=== PATIENT | female | born 1990 | race African-American/Black ===

== ENCOUNTER 2022-08-19 11:05 | Emergency (ER) | payer OTHER, SELFPAY ==
--- OUTSIDE RECORDS SUMMARY | 2022-08-19 11:10 | XMS REPORT | Continuity of Care Document ---
:1990 Author Organization [facility] t Address [address] [place] [address] Care Team Providers Name Role Phone Bill Blackmon MD Primary Care Physician DIAMOND VELÁSQUEZ Attending Clinician Unavailable ARMAND VIDAL Attending Clinician Unavailable Cat Scott MA Attending Clinician Unavailable Aleyda Ellington MA Attending Clinician Unavailable Yamile Meade RN Attending Clinician Unavailable Diamond Velásquez MD Attending Clinician [phone] Yamile Lopez RN Attending Clinician Unavailable Armand Kendrick Attending Clinician Tarik Jaime MD Attending Clinician [facility] Attending Clinician Unavailable Félix Owen Attending Clinician [phone] FÉLIX VORA Attending Clinician Unavailable MAGDALENO MCDANIEL Attending Clinician Unavailable BHAVYA MATTSON Attending Clinician Unavailable Bill Blackmon MD Attending Clinician Reina Maciel MA Attending Clinician Unavailable KIESHA HUFF Attending Clinician Unavailable DIAMOND VELÁSQUEZ Admitting Clinician Unavailable Payers Payer Name Policy Type Policy Number Effective Date Expiration Date Parveen garland BCBS OS [id number] 2019 POS/PPO/EPO 00:00:00 [place] [id number] 2019 OUT OF STATE 00:00:00 [place] [id number] 2019 00:00:00 Problems Condition Condition Condition Status Onset Resolution Last Treating Co mments Source Name Details Category Date Date Treatment Clinician Date Morbid Morbid Disease [facility] GERD GERD Disease Active [facility] ([facility]astroeso (gastroeso 5-17 [facility] phageal phageal 00:00: Medical reflux reflux 00 Center disease) disease) Trichomona Trichomona Disease Active U nivers l l 2-03 ity of [place]ov[place] it[place] 00 Medical Branch LGSIL on LGSIL on Disease Active 2019-08 Overview: Un jose Pap smear Pap smear 2-15 Formattin i ty of of cervix of cervix 00:00: [place] of [place] 00 note Medical might be Branch different from the original. 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 Morbid Morbid Disease Active Univers obesity obesity 7-03 ity of 00:00: [place] 00 Medical Branch Allergies, Adverse Reactions, Alerts Allergy Allergy Status Severity Reaction(s) Onset Inactive Treating Comm ents Source Name Type Date Date Clinician Diphenhy Propensi Active Itching Metho di dramine ty to 3-11 st Hcl adverse 00:00: [facility] reaction 00 l s to drug DIPHENHY DRUG Active Swelling Univer s DRAMINE INGREDI 1-24 ity of HCL 00:00: [place] 00 Medical Branch Diphenhy Propensi Active Swelling Univ ers dramine ty to 1-24 ity of Hcl adverse 00:00: [place] reaction 00 Medical s Branch NO KNOWN Allergy Active [facility] Family History Family Member Diagnosis Comments Start Date Stop Date Source Natural father [facility] Social History Social Habit Start Date Stop Date Quantity Comments Source History SDOH [facility] Alcohol Frequency Medical [facility] History SDOH [facility] Alcohol Std Medical Cente r Drinks History SDOH [facility] Alcohol Binge Medical Lyn ter History SDOH [facility] Transport Non-Med Medical Center Exposure to 2022-06-25 2022-07-05 Not sure University SARS-CoV-2 00:00:00 06:24:00 [facility] (event) Branch Alcohol intake 2022-06-29 2022-06-29 [facility] alcohol Medical Center (finding) History SDOH 2021-12-28 2021-12-[address] [facility] Transport Med 00:00:00 00:00:[address] History SDOH 2021-12-28 2021-12-[address] [facility] Housing Unable to 00:00:00 00:00:00 Medical Center Pay History SDAK 2021-12-28 2021-12-[address] [facility] Housing Places 00:00:00 00:00:00 Medical Ce nter Lived History SDAK 2021-12-28 2021-12-[address] [facility] Housing Homeless 00:00:00 00:00:00 Medical Center Last Year History SDOH 2021-10-27 2021-10-[address] [facility] Alcohol Comment 00:00:00 00:00:00 Medical C enter Tobacco use and 2021-09-29 2021-09-[address] [facility] exposure 00:00:00 00:00:00 Medical Center Sex Assigned At [address] [facility] 00:00:00 00:00:00 Medical Center Smoking Status Start Date Stop Date Source Never smoker [facility] Center Medications Ordered Filled Start Stop Current Ordering Indication Dosage Frequency Signature Comments Components Source Medication Medication Date Date Medication? Clinician (SIG) Name Name esomeprazol 2021-08 Yes 20mg QD Take [address] (NexIUM) 1-16 by mouth [facility] 20 MG 10:55: daily. Medical capsule 22 Center esomeprazol No 20mg QD Take [address] (NexIUM) 5-18 05-18 by mouth Luke s 20 MG 14:22: 00:00 daily. Medical capsule 53 :00 Center pantoprazol 2022- No 40mg QD Take [address] [facility] 5-18 05-18 tablet (40 [facility] (Protonix) 00:00: 23:59 mg total) M edical 40 MG 00 :00 by mouth Center tablet daily. HYDROcodone 2021- No 10mL Take [address] -acetaminop 5-18 05-28 mLs by [facility] hen 00:00: 23:59 mouth Medical (LORTAB,HYC 00 :00 every 6 Cente r ET) 7.5-325 (six) mg/15 mL hours as Soln needed for solution up to 10 days. Max Daily Amount: 40 mLs ondansetron 2021- No 4mg Take [address] [facility] [address] (ZOFRAN-ODT 5-18 05-25 tablet (4 [facility] ) 4 MG 00:00: 23:59 mg total) Medic al disintegrat 00 :00 by mouth Cent er ing tablet every 8 (eight) hours as needed for Nausea for up to 7 days. GENVOYA Yes [id number] TAKE 1 Univ ers 150-150-200 4-28 TABLET BY ity of -10 mg per 00:00: MOUTH [place] tablet 00 EVERY DAY Medical Branch GENVOYA Yes [id number] TAKE 1 Univ ers 150-150-200 4-28 TABLET BY ity of -10 mg per 00:00: MOUTH [place] tablet 00 EVERY DAY Medical Branch GENVOYA Yes [id number] TAKE 1 Univ ers 150-150-200 4-28 TABLET BY ity of -10 mg per 00:00: MOUTH [place] tablet 00 EVERY DAY Medical Branch GENVOYA 2021-0 Yes [id number] TAKE 1 Univ ers 150-150-200 4-28 TABLET BY ity of -10 mg per 00:00: MOUTH [place] tablet 00 EVERY DAY Medical Branch GENVOYA 2021-0 Yes [id number] TAKE 1 Univ ers 150-150-200 4-28 TABLET BY ity of -10 mg per 00:00: MOUTH [place] tablet 00 EVERY DAY Medical Branch GENVOYA 2021-0 Yes [id number] TAKE 1 Univ ers 150-150-200 4-28 TABLET BY ity of -10 mg per 00:00: MOUTH [place] tablet 00 EVERY DAY Medical Branch GENVOYA 0 Yes [id number] TAKE 1 Univ ers 150-150-200 4-28 TABLET BY ity of -10 mg per 00:00: MOUTH [place] tablet 00 EVERY DAY Medical Branch GENVOYA 0 Yes [id number] TAKE 1 Univ ers 150-150-200 4-28 TABLET BY ity of -10 mg per 00:00: MOUTH [place] tablet 00 EVERY DAY Medical Branch GENVOYA 0 Yes [id number] TAKE 1 Univ ers 150-150-200 4-28 TABLET BY ity of -10 mg per 00:00: MOUTH [place] tablet 00 EVERY DAY Medical Branch GENVOYA 0 Yes [id number] TAKE 1 Univ ers 150-150-200 4-28 TABLET BY ity of -10 mg per 00:00: MOUTH [place] tablet 00 EVERY DAY Medical Branch elviteg-cob 2020-0 2021- No [id number] 1{tbl} Take 1 Univers -emtri-teno 3-26 04-28 tablet by it y of f ALAFEN 00:00: 00:00 mouth [place] 150-150-200 00 :00 daily. Medica l -10 mg per Branch tablet Genvoya 2020-0 Yes 1{tbl} QD Take 1 Method i 150-150-200 2-[address] -10 mg per 00:00: mouth Hospit a tablet 00 daily. l Genvoya 2020-0 Yes 1{tbl} QD Take 1 Method i 150-150-200 2-[address] -10 mg per 00:00: mouth Hospit a tablet 00 daily. l elvitegravi 0 Yes 1{tbl} QD Take [address] r-cobicista 2-18 tablet by Jayda montez 00:00: mouth Medic al bine-tenofo 00 daily. Center [facility] alafenamide (GENVOYA) 150-150-200 -10 mg Tab Immunizations Ordered Immunization Filled Immunization Date Status Commen ts Source Name Name Influenza Virus 2021-10-19 Completed Universit y of Vaccine Quad IM, 00:00:00 [place] Me dical Preserv and ABX Free Bran ch 6 MO-64 YRS SARS-COV-2 COVID-19 2021-10-19 Completed Unive rsity of PFIZER VACCINE 00:00:00 [facility] Influenza Virus 2021-10-19 Completed Universit y of Vaccine Quad IM, 00:00:00 [place] Me dical Preserv and ABX Free Bran ch 6 MO-64 YRS SARS-COV-2 COVID-19 2021-10-19 Completed Unive rsity of PFIZER VACCINE 00:00:00 [facility] Influenza Virus 2021-10-19 Completed Universit y of Vaccine Quad IM, 00:00:00 [place] Me dical Preserv and ABX Free Bran ch 6 MO-64 YRS SARS-COV-2 COVID-19 2021-10-19 Completed Unive rsity of PFIZER VACCINE 00:00:00 [facility] Influenza Virus 2021-10-19 Completed Universit y of Vaccine Quad IM, 00:00:00 [place] Me dical Preserv and ABX Free Bran ch 6 MO-64 YRS SARS-COV-2 COVID-19 2021-10-19 Completed Unive rsity of PFIZER VACCINE 00:00:00 [facility] Influenza Virus 2021-10-19 Completed Universit y of Vaccine Quad IM, 00:00:00 [place] Me dical Preserv and ABX Free Bran ch 6 MO-64 YRS SARS-COV-2 COVID-19 2021-10-19 Completed Unive rsity of PFIZER VACCINE 00:00:00 [facility] Influenza Virus 2021-10-19 Completed Universit y of Vaccine Quad IM, 00:00:00 [place] Me dical Preserv and ABX Free Bran ch 6 MO-64 YRS SARS-COV-2 COVID-19 2021-10-19 Completed Unive rsity of PFIZER VACCINE 00:00:00 [facility] Influenza Virus 2021-10-19 Completed Universit y of Vaccine Quad IM, 00:00:00 [place] Me dical Preserv and ABX Free Bran ch 6 MO-64 YRS SARS-COV-2 COVID-19 2021-10-19 Completed Unive rsity of PFIZER VACCINE 00:00:00 [facility] Influenza Virus 2021-10-19 Completed Universit y of Vaccine Quad IM, 00:00:00 [place] Me dical Preserv and ABX Free Bran ch 6 MO-64 YRS SARS-COV-2 COVID-19 2021-10-19 Completed Unive rsity of PFIZER VACCINE 00:00:00 [facility] Influenza Virus 2021-10-19 Completed Universit y of Vaccine Quad IM, 00:00:00 [place] Me dical Preserv and ABX Free Bran ch 6 MO-64 YRS SARS-COV-2 COVID-19 2021-10-19 Completed Unive rsity of PFIZER VACCINE 00:00:00 [facility] Influenza Virus 2021-10-19 Completed Universit y of Vaccine Quad IM, 00:00:00 [place] Me dical Preserv and ABX Free Bran ch 6 MO-64 YRS SARS-COV-2 COVID-19 2021-10-19 Completed Unive rsity of PFIZER VACCINE 00:00:00 [facility] Influenza Virus 2021-10-19 Completed Universit y of Vaccine Quad IM, 00:00:00 [place] Me dical Preserv and ABX Free Bran ch 6 MO-64 YRS SARS-COV-2 COVID-19 2021-10-19 Completed Unive rsity of PFIZER VACCINE 00:00:00 [facility] SARS-COV-2 COVID-19 2020-12-04 Completed Unive rsity of PFIZER VACCINE 00:00:00 [facility] SARS-COV-2 COVID-19 2020-12-04 Completed Unive rsity of PFIZER VACCINE 00:00:00 [facility] SARS-COV-2 COVID-19 2020-12-04 Completed Unive rsity of PFIZER VACCINE 00:00:00 [facility] SARS-COV-2 COVID-19 2020-12-04 Completed Unive rsity of PFIZER VACCINE 00:00:00 [place] Medi summer Branch SARS-COV-2 COVID-19 2020-12-04 Completed Unive rsity of PFIZER VACCINE 00:00:00 [facility] Branch SARS-COV-2 COVID-19 2020-12-04 Completed Unive rsity of PFIZER VACCINE 00:00:00 [facility] Branch SARS-COV-2 COVID-19 2020-12-04 Completed Unive rsity of PFIZER VACCINE 00:00:00 [facility] Branch SARS-COV-2 COVID-19 2020-12-04 Completed Unive rsity of PFIZER VACCINE 00:00:00 [facility] Branch SARS-COV-2 COVID-19 2020-12-04 Completed Unive rsity of PFIZER VACCINE 00:00:00 [facility] Branch SARS-COV-2 COVID-19 2020-12-04 Completed Unive rsity of PFIZER VACCINE 00:00:00 [facility] Branch SARS-COV-2 COVID-19 2020-12-04 Completed Unive rsity of PFIZER VACCINE 00:00:00 [facility] Branch SARS-COV-2 COVID-19 2020-10-15 Completed Unive rsity of PFIZER VACCINE 00:00:00 [facility] Branch SARS-COV-2 COVID-19 2020-10-15 Completed Unive rsity of PFIZER VACCINE 00:00:00 [facility] Branch SARS-COV-2 COVID-19 2020-10-15 Completed Unive rsity of PFIZER VACCINE 00:00:00 [facility] Branch SARS-COV-2 COVID-19 2020-10-15 Completed Unive rsity of PFIZER VACCINE 00:00:00 [facility] Branch SARS-COV-2 COVID-19 2020-10-15 Completed Unive rsity of PFIZER VACCINE 00:00:00 [facility] Branch SARS-COV-2 COVID-19 2020-10-15 Completed Unive rsity of PFIZER VACCINE 00:00:00 [facility] Branch SARS-COV-2 COVID-19 2020-10-15 Completed Unive rsity of PFIZER VACCINE 00:00:00 [facility] SARS-COV-2 COVID-19 2020-10-15 Completed Unive rsity of PFIZER VACCINE 00:00:00 [facility] Branch SARS-COV-2 COVID-19 2020-10-15 Completed Unive rsity of PFIZER VACCINE 00:00:00 [facility] SARS-COV-2 COVID-19 2020-10-15 Completed Unive rsity of PFIZER VACCINE 00:00:00 [facility] SARS-COV-2 COVID-19 2020-10-15 Completed Unive rsity of PFIZER VACCINE 00:00:00 [facility] Influenza Virus 2020-06-05 Completed Universit y of Vaccine Quad .5 mL IM 00:00:00 [facility] 6+ MO Branch Influenza Virus 2020-06-05 Completed Universit y of Vaccine Quad .5 mL IM 00:00:00 [facility] 6+ MO Branch Influenza Virus 2020-06-05 Completed Universit y of Vaccine Quad .5 mL IM 00:00:00 [facility] 6+ MO Branch Influenza Virus 2020-06-05 Completed Universit y of Vaccine Quad .5 mL IM 00:00:00 [facility] 6+ MO Branch Influenza Virus 2020-06-05 Completed Universit y of Vaccine Quad .5 mL IM 00:00:00 [facility] Medical 6+ MO Branch Influenza Virus 2020-06-05 Completed Universit y of Vaccine Quad .5 mL IM 00:00:00 [facility] Medical 6+ MO Branch Influenza Virus 2020-06-05 Completed Universit y of Vaccine Quad .5 mL IM 00:00:00 [facility] Medical 6+ MO Branch Influenza Virus 2020-06-05 Completed Universit y of Vaccine Quad .5 mL IM 00:00:00 [facility] Medical 6+ MO Branch Influenza Virus 2020-06-05 Completed Universit y of Vaccine Quad .5 mL IM 00:00:00 [facility] 6+ MO Branch Influenza Virus 2020-06-05 Completed Universit y of Vaccine Quad .5 mL IM 00:00:00 [facility] 6+ MO Branch Influenza Virus 2020-06-05 Completed Universit y of Vaccine Quad .5 mL IM 00:00:00 [facility] 6+ MO Branch Influenza Virus 2019-05-17 Completed Universit y of Vaccine Quad .5 mL IM 00:00:00 [facility] 6+ MO Branch Pneumococcal 2019-05-17 Completed University o f Polysaccharide, 00:00:00 [place] Med ical PPSV23 (PNEUMOVAX) Branch Influenza Virus 2019-05-17 Completed Universit y of Vaccine Quad .5 mL IM 00:00:00 [facility] Medical 6+ MO Branch Pneumococcal 2019-05-17 Completed University o f Polysaccharide, 00:00:00 [place] Med ical PPSV23 (PNEUMOVAX) Branch Influenza Virus 2019-05-17 Completed Universit y of Vaccine Quad .5 mL IM 00:00:00 [facility] Medical 6+ MO Branch Pneumococcal 2019-05-17 Completed University o f Polysaccharide, 00:00:00 [place] Med ical PPSV23 (PNEUMOVAX) Branch Influenza Virus 2019-05-17 Completed Universit y of Vaccine Quad .5 mL IM 00:00:00 [facility] 6+ MO Branch Pneumococcal 2019-05-17 Completed University o f Polysaccharide, 00:00:00 [place] Med ical PPSV23 (PNEUMOVAX) Branch Influenza Virus 2019-05-17 Completed Universit y of Vaccine Quad .5 mL IM 00:00:00 [facility] 6+ MO Branch Pneumococcal 2019-05-17 Completed University o f Polysaccharide, 00:00:00 [place] Med ical PPSV23 (PNEUMOVAX) Branch Influenza Virus 2019-05-17 Completed Universit y of Vaccine Quad .5 mL IM 00:00:00 [facility] 6+ MO Branch Pneumococcal 2019-05-17 Completed University o f Polysaccharide, 00:00:00 [place] Med ical PPSV23 (PNEUMOVAX) Branch Influenza Virus 2019-05-17 Completed Universit y of Vaccine Quad .5 mL IM 00:00:00 [facility] 6+ MO Branch Pneumococcal 2019-05-17 Completed University o f Polysaccharide, 00:00:00 [place] Med ical PPSV23 (PNEUMOVAX) Branch Influenza Virus 2019-05-17 Completed Universit y of Vaccine Quad .5 mL IM 00:00:00 [facility] 6+ MO Branch Pneumococcal 2019-05-17 Completed University o f Polysaccharide, 00:00:00 [place] Med ical PPSV23 (PNEUMOVAX) Branch Influenza Virus 2019-05-17 Completed Universit y of Vaccine Quad .5 mL IM 00:00:00 [facility] 6+ MO Branch Pneumococcal 2019-05-17 Completed University o f Polysaccharide, 00:00:00 [place] Med ical PPSV23 (PNEUMOVAX) Branch Influenza Virus 2019-05-17 Completed Universit y of Vaccine Quad .5 mL IM 00:00:00 [facility] 6+ MO Branch Pneumococcal 2019-05-17 Completed University o f Polysaccharide, 00:00:00 [place] Med ical PPSV23 (PNEUMOVAX) Branch Influenza Virus 2019-05-17 Completed Universit y of Vaccine Quad .5 mL IM 00:00:00 [facility] 6+ MO Branch Pneumococcal 2019-05-17 Completed University o f Polysaccharide, 00:00:00 [facility] ical PPSV23 (PNEUMOVAX) Branch Meningococcal 2018-08-21 Completed University of Polysaccharide 00:00:00 [place] Medi summer (groups A, C, Y and Branc h W-135) conjugate vaccine (MCV4P) Pneumococcal 2018-08-21 Completed Universit y of Conjugate, PCV13 00:00:00 [facility] dical (Prevnar 13) Branch Meningococcal 2018-08-21 Completed University of Polysaccharide 00:00:00 [place] Medi summer (groups A, C, Y and Branc h W-135) conjugate vaccine (MCV4P) Pneumococcal 2018-08-21 Completed Universit y of Conjugate, PCV13 00:00:00 [place] Me dical (Prevnar 13) Branch Meningococcal 2018-08-21 Completed University of Polysaccharide 00:00:00 [place] Medi summer (groups A, C, Y and Branc h W-135) conjugate vaccine (MCV4P) Pneumococcal 2018-08-21 Completed Universit y of Conjugate, PCV13 00:00:00 [place] Me dical (Prevnar 13) Branch Meningococcal 2018-08-21 Completed University of Polysaccharide 00:00:00 [place] Medi summer (groups A, C, Y and Branc h W-135) conjugate vaccine (MCV4P) Pneumococcal 13 2018-08-21 Completed Universit y of Conjugate, PCV13 00:00:00 [facility] dical (Prevnar 13) Branch Meningococcal 2018-08-21 Completed University of Polysaccharide 00:00:00 [place] Medi summer (groups A, C, Y and Branc h W-135) conjugate vaccine (MCV4P) Pneumococcal 13 2018-08-21 Completed Universit y of Conjugate, PCV13 00:00:00 [facility] dical (Prevnar 13) Branch Meningococcal 2018-08-21 Completed University of Polysaccharide 00:00:00 [place] Medi summer (groups A, C, Y and Branc h W-135) conjugate vaccine (MCV4P) Pneumococcal 13 2018-08-21 Completed Universit y of Conjugate, PCV13 00:00:00 [facility] dical (Prevnar 13) Branch Meningococcal 2018-08-21 Completed University of Polysaccharide 00:00:00 [place] Medi summer (groups A, C, Y and Branc h W-135) conjugate vaccine (MCV4P) Pneumococcal 13 2018-08-21 Completed Universit y of Conjugate, PCV13 00:00:00 [place] Me dical (Prevnar 13) Branch Meningococcal 2018-08-21 Completed University of Polysaccharide 00:00:00 [place] Medi smumer (groups A, C, Y and Branc h W-135) conjugate vaccine (MCV4P) Pneumococcal 13 2018-08-21 Completed Universit y of Conjugate, PCV13 00:00:00 [facility] dical (Prevnar 13) Branch Meningococcal 2018-08-21 Completed University of Polysaccharide 00:00:00 [place] Medi summer (groups A, C, Y and Branc h W-135) conjugate vaccine (MCV4P) Pneumococcal 13 2018-08-21 Completed Universit y of Conjugate, PCV13 00:00:00 [facility] dical (Prevnar 13) Branch Meningococcal 2018-08-21 Completed University of Polysaccharide 00:00:00 [place] Medi summer (groups A, C, Y and Branc h W-135) conjugate vaccine (MCV4P) Pneumococcal 13 2018-08-21 Completed Universit y of Conjugate, PCV13 00:00:00 [facility] dical (Prevnar 13) Branch Meningococcal 2018-08-21 Completed University of Polysaccharide 00:00:00 [place] Medi summer (groups A, C, Y and Branc h W-135) conjugate vaccine (MCV4P) Pneumococcal 13 2018-08-21 Completed Universit y of Conjugate, PCV13 00:00:00 [facility] dical (Prevnar 13) [place] Influenza Virus 2017-09-12 Completed Universit y of Vaccine Quad IM 3+ 00:00:00 [facility] Influenza Virus 2017-09-12 Completed Universit y of Vaccine Quad IM 3+ 00:00:00 [facility] Influenza Virus 2017-09-12 Completed Universit y of Vaccine Quad IM 3+ 00:00:00 [facility] Influenza Virus 2017-09-12 Completed Universit y of Vaccine Quad IM 3+ 00:00:00 [facility] Influenza Virus 2017-09-12 Completed Universit y of Vaccine Quad IM 3+ 00:00:00 [facility] Influenza Virus 2017-09-12 Completed Universit y of Vaccine Quad IM 3+ 00:00:00 [facility] Influenza Virus 2017-09-12 Completed Universit y of Vaccine Quad IM 3+ 00:00:00 [facility] Influenza Virus 2017-09-12 Completed Universit y of Vaccine Quad IM 3+ 00:00:00 [facility] Influenza Virus 2017-09-12 Completed Universit y of Vaccine Quad IM 3+ 00:00:00 [facility] Influenza Virus 2017-09-12 Completed Universit y of Vaccine Quad IM 3+ 00:00:00 [facility] Influenza Virus 2017-09-12 Completed Universit y of Vaccine Quad IM 3+ 00:00:00 [facility] TDAP 2014-04-22 Completed University of 00:00:00 [facility] TDAP 2014-04-22 Completed University of 00:00:00 [facility] TDAP 2014-04-22 Completed University of 00:00:00 [facility] TDAP 2014-04-22 Completed University of 00:00:00 [facility] TDAP 2014-04-22 Completed University of 00:00:00 [facility] TDAP 2014-04-22 Completed University of 00:00:00 [facility] TDAP 2014-04-22 Completed University of 00:00:00 [facility] TDAP 2014-04-22 Completed University of 00:00:00 [facility] TDAP 2014-04-22 Completed University of 00:00:00 [facility] TDAP 2014-04-22 Completed University of 00:00:00 [facility] TDAP 2014-04-22 Completed University of 00:00:00 [facility] Influenza Virus 2012-09-06 Completed Universit y of Vaccine 00:00:00 [facility] Influenza Virus 2012-09-06 Completed Universit y of Vaccine 00:00:00 [facility] Influenza Virus 2012-09-06 Completed Universit y of Vaccine 00:00:00 [facility] Influenza Virus 2012-09-06 Completed Universit y of Vaccine 00:00:00 [facility] Influenza Virus 2012-09-06 Completed Universit y of Vaccine 00:00:00 [facility] Influenza Virus 2012-09-06 Completed Universit y of Vaccine 00:00:00 [facility] Influenza Virus 2012-09-06 Completed Universit y of Vaccine 00:00:00 [facility] Influenza Virus 2012-09-06 Completed Universit y of Vaccine 00:00:00 [facility] Influenza Virus 2012-09-06 Completed Universit y of Vaccine 00:00:00 [facility] Influenza Virus 2012-09-06 Completed Universit y of Vaccine 00:00:00 [facility] Influenza Virus 2012-09-06 Completed [facility] of Vaccine 00:00:00 [facility] Vital Signs Vital Name Observation Time Observation Value Comments Source HEIGHT 2022-04-27 11:55:00 170.2 cm WEIGHT 2022-04-27 11:55:00 105.235 kg HEIGHT 2022-04-27 11:55:00 170.2 cm WEIGHT 2022-04-27 11:55:00 105.235 kg HEIGHT 2022-02-09 15:22:00 170.2 cm WEIGHT 2022-02-09 15:22:00 108.863 kg HEIGHT 2022-02-09 15:22:00 170.2 cm WEIGHT 2022-02-09 15:22:00 108.863 kg HEIGHT 2021-12-28 08:40:00 170.2 cm WEIGHT 2021-12-28 08:40:00 113.399 kg HEIGHT 2021-12-21 08:14:00 170.2 cm WEIGHT 2021-12-21 08:14:00 113.399 kg HEIGHT 2021-12-28 08:40:00 170.2 cm WEIGHT 2021-12-28 08:40:00 113.399 kg HEIGHT 2021-12-21 08:14:00 170.2 cm WEIGHT 2021-12-21 08:14:00 113.399 kg HEIGHT 2021-12-28 08:40:00 170.2 cm WEIGHT 2021-12-28 08:40:00 113.399 kg HEIGHT 2021-12-21 08:14:00 170.2 cm WEIGHT 2021-12-21 08:14:00 113.399 kg HEIGHT 2021-12-13 09:00:00 170.2 cm WEIGHT 2021-12-13 09:00:00 113.399 kg HEIGHT 2021-12-13 09:00:00 170.2 cm WEIGHT 2021-12-13 09:00:00 113.399 kg HEIGHT 2021-11-17 11:30:00 170.2 cm WEIGHT 2021-11-17 11:30:00 113.399 kg HEIGHT 2021-11-17 11:30:00 170.2 cm WEIGHT 2021-11-17 11:30:00 113.399 kg HEIGHT 2021-11-12 07:22:00 170.2 cm WEIGHT 2021-11-12 07:22:00 117.935 kg HEIGHT 2021-10-27 15:45:00 170.2 cm WEIGHT 2021-10-27 15:45:00 117.935 kg HEIGHT 2021-11-12 07:22:00 170.2 cm WEIGHT 2021-11-12 07:22:00 117.935 kg HEIGHT 2021-10-27 15:45:00 170.2 cm WEIGHT 2021-10-27 15:45:00 117.935 kg HEIGHT 2021-11-12 07:22:00 170.2 cm WEIGHT 2021-11-12 07:22:00 117.935 kg HEIGHT 2021-10-27 15:45:00 170.2 cm WEIGHT 2021-10-27 15:45:00 117.935 kg Systolic blood 2021-10-19 14:28:00 117 mm[Hg] Univer sity of pressure [facility] Diastolic blood 2021-10-19 14:28:00 79 mm[Hg] Unive rsity of [facility] Heart rate 2021-10-19 14:28:00 68 /min [facility] Body temperature 2021-10-19 14:28:00 36.72 Tanya [facility] Respiratory rate 2021-10-19 14:28:00 16 /min [facility] [place] Body height 2021-10-19 14:28:00 167.6 cm [facility] Body weight 2021-10-19 14:28:00 118.162 kg [facility] BMI 2021-10-19 14:28:00 42.05 kg/m2 [facility] HEIGHT 2021-09-29 09:16:00 170.2 cm WEIGHT 2021-09-29 09:16:00 119.931 kg HEIGHT 2021-09-29 09:16:00 170.2 cm WEIGHT 2021-09-29 09:16:00 119.931 kg Systolic blood 2022-06-29 10:54:00 129 mm[Hg] [facility] Diastolic blood 2022-06-29 10:54:00 79 mm[Hg] [facility] Heart rate 2022-06-29 10:54:00 76 /min [facility] Body temperature 2022-06-29 10:54:00 36.22 Tanya [facility] Body height 2022-06-29 10:54:00 170.2 cm [facility] Body weight 2022-06-29 10:54:00 107.82 kg [facility] BMI 2022-06-29 10:54:00 37.23 kg/m2 [facility] Respiratory rate 2021-12-29 14:00:00 18 /min [facility] Oxygen saturation in 2021-12-29 14:00:00 99 /min [facility] Arterial blood by Medical Ce nter Pulse oximetry Systolic blood 2020-10-22 17:18:00 114 mm[Hg] [facility] pressure Diastolic blood 2020-10-22 17:18:00 79 mm[Hg] [facility] pressure Heart rate 2020-10-22 17:18:00 72 /min [facility] Body temperature 2020-10-22 17:18:00 36.72 Tanya [facility] Body height 2020-10-22 17:18:00 170.2 cm [facility] Body weight 2020-10-22 17:18:00 106.595 kg [facility] BMI 2020-10-22 17:18:00 36.81 kg/m2 [facility] Procedures Procedure Date / Time Performing Clinician Source Performed BASIC METABOLIC PANEL 2021-12-29 04:42:00 Diamond Vel[facility]quez [facility] CBC W/PLT COUNT & AUTO 2021-12-29 04:42:00 Diamond Velásquez [facility] DIFFERENTIAL [facility] CBC W/PLT COUNT & AUTO 2021-12-29 04:42:00 Diamond Vel[facility]quez [facility] DIFFERENTIAL [facility] POCT-GLUCOSE METER 2021-12-29 03:04:00 Diamond Velásquez [facility] TISSUE EXAM 2021-12-28 14:44:00 Fadner, Diamond [facility] LAPAROSCOPY, WITH STEPHANY-EN-Y 2021-12-28 11:27:00 Diamond Velásquez [facility] GASTROENTEROSTOMY [facility] SCREEN, URINE 2021-12-28 08:18:00 Jaime Poncho [facility] SARS-COV2/RT-PCR ([facility] & 2021-12-23 07:59:00 Diamond Velásquez [facility] REF LABS) [facility] CBC W/PLT COUNT & AUTO 2021-12-23 07:59:00 Diamond Velásquez [facility] Parveen t Debra DIFFERENTIAL [facility] COMPREHENSIVE METABOLIC 2021-12-23 07:59:00 Christen [facility] PANEL [facility] FOLATE, SERUM 2021-12-23 07:59:00 Christen [facility] HEMOGLOBIN A1C 2021-12-23 07:59:00 Christen [facility] IRON, SERUM 2021-12-23 07:59:00 Christen [facility] VITAMIN B1 2021-12-23 07:59:00 [facility] B12 2021-12-23 07:59:00 [facility] VITAMIN D, 25-HYDROXY 2021-12-23 07:59:00 Christen [facility] CBC W/PLT COUNT & AUTO 2021-12-23 07:59:00 Diamond Velásquez [facility] Parveen t Debra DIFFERENTIAL [facility] REPORT OF PROCEDURE - 2021-11-12 10:36:54 [facility] URL [facility] EGD 2021-11-12 08:49:00 Diamond Velásquez [facility] (ESOPHAGOGASTRODUODENOSCOPY [facility] ) SCREEN, URINE 2021-11-12 07:12:[address] [facility] SARS-COV2/RT-PCR ([facility] & 2021-11-09 11:22:00 [facility] FLU VACC ([id number]), 2-64 2021-10-19 14:52:40 Armand Vidal [facility] YRS, .5ML, IM, QUAD Medical Bran ch (FLUCELVAX) T-HELPER CELLS CD4/CD8 % 2020-10-29 13:17:00 Ope, [facility] XR CHEST 2 VW 2020-10-26 15:49:58 Ope, [facility] URINE CULTURE, 2020-10-23 14:56:00 Ope, [facility] COMPREHENSIVE (RAMON HIST) CBC WITH PLATELET AND 2020-10-23 14:56:00 Ope, [facility] DIFFERENTIAL COMPREHENSIVE METABOLIC 2020-10-23 14:56:00 Ope, [facility] PANEL PROTHROMBIN TIME WITH INR 2020-10-23 14:56:00 Ope, [facility] PARTIAL THROMBOPLASTIN TIME 2020-10-23 14:56:00 Ope, [facility] (PTT) HCG QUALITATIVE, URINE 2020-10-23 14:56:00 Ope, [facility] SCREEN URINALYSIS, COMPLETE, WITH 2020-10-23 14:56:00 Ope, [facility] REFLEX TO CULTURE HIV 1/2 ANTIGEN/ANTIBODY, 2020-10-23 14:56:00 Ope, [facility] FOURTH GENERATION W/RFL HIV 1/2 AB DIFFERENTIATION 2020-10-23 14:56:00 Ope, [facility] MICROSCOPIC EXAMINATION 2020-10-23 14:56:00 Ope, [facility] ECG 12-LEAD 2020-10-21 21:11:43 Ope, [facility] Plan of Care Planned Activity Planned Date Details Comments Source Future Scheduled 2024-10-[address] [facility] 00:[facility]00 (procedure) [code = Medical Center 11633251] Future Scheduled 2024-09-[address] [facility] Test 00:00:00 malignant neoplasm of Medica l Center cervix (procedure) [code = 467638743] Future Scheduled 2024-04-22 DTAP/TDAP/TD VACCINES [facility] Test 00:00:00 (2 - Td or Tdap) [code Medic al Center = DTAP/TDAP/TD VACCINES (2 - Td or Tdap)] Future Scheduled 2023-06-[address] [facility] Test 00:00:00 Counseling and Medical Cente r Screening (12+) [code = Tobacco Cessation Counseling and Screening (12+)] Future Scheduled 2022-08-17 HEPATITIS B VACCINES Met [facility] Test 22:09:10 (1 of 3 - 3-dose series) [code = HEPATITIS B VACCINES (1 of 3 - 3-dose series)] Future Scheduled 2022-08-17 Pneumococcal Vaccine: [facility] Test 22:09:10 Pediatrics (0 to 5 Years) and At-Risk Patients (6 to 64 Years) (1 - PCV) [code = Pneumococcal Vaccine: Pediatrics (0 to 5 Years) and At-Risk Patients (6 to 64 Years) (1 - PCV)] Future Scheduled 2022-08-17 Hepatitis C screening [facility] Test 22:09:10 (procedure) [code = 532587435] Future Scheduled 2022-08-17 Screening for [facility] Test 22:09:10 malignant neoplasm of cervix (procedure) [code = 578238748] Future Scheduled 2022-08-17 COVID-19 VACCINE (2 - [facility] Test 22:09:10 Pfizer series) [code = COVID-19 VACCINE (2 - Pfizer series)] Future Scheduled 2022-08-17 INFLUENZA VACCINE Method [facility] Test 22:09:10 [code = INFLUENZA VACCINE] Future Scheduled 2022-04-14 INFLUENZA VACCINE (#1) [facility] 00:00:00 [code = INFLUENZA Medical Ce nter VACCINE (#1)] Future Scheduled 2021-09-04 Hepatitis C screening [facility] Test 17:53:34 (procedure) [code = 201727768] Future Scheduled 2021-09-04 Screening for [facility] Test 17:53:34 malignant neoplasm of cervix (procedure) [code = 903805509] Future Scheduled 2021-09-04 COVID-19 VACCINE (2 - [facility] Test 17:53:34 Pfizer risk 4-dose series) [code = COVID-19 VACCINE (2 - Pfizer risk 4-dose series)] Future Scheduled 2021-09-04 INFLUENZA VACCINE Method ist Hospital Test 17:53:34 [code = INFLUENZA VACCINE] Future Scheduled 2021-08-[address] [facility] Test 00:00:00 (12+) [code = Medical Center DEPRESSION SCREENING (12+)] Future Scheduled 2007 HEPATITIS C [facility]CRE[facility]ING [facility] Test 00:00:00 [code = HEPATITIS C Medical Center SCREENING] Encounters Start End Encounter Admission Attending Care Care Encounter Source Date/Time Date/Time Type Type Clinicians Facility Department ID 2022-09-28 2022-09-28 Outpatient ABENA VELÁSQUEZ, [facility] [id number] 00:00:00 00:00:00 [facility] 2022-08-22 2022-08-22 Outpatient Jacoby VIDAL [facility] [id number] Univers 10:30:00 10:30:00 ARMAND mendez [facility] 2022-08-18 2022-08-18 Case Sonia, UNIVERSIT [id number] Univers 00:00:00 00:00:00 Management Nechelle Y HEALTH [id number] [id number] [id number] [address] 2022-08-16 2022-08-16 Case LONDON ScottIT [id number] Univers 00:00:00 00:00:00 Management Nechelle Y HEALTH [id number] [place] [id number] [address] 2022-08-16 2022-08-16 Case Sonia UNIVERSIT [id number] Univers 00:00:00 00:00:00 Management Nechelle Y HEALTH [id number] [place] [id number] [address] 2022-08-03 2022-08-03 Case Chandana UNIVERSIT [id number] Univers 00:00:00 00:00:00 Management Aleyda L Y HEALTH [id number] [id number] [id number] [address] 2022-08-02 2022-08-02 Outpatient [facility] [id number] Univers 08:00:00 08:00:00 [facility] 2022-08-01 2022-08-01 Case Chandana, UNIVERSIT [id number] Univers 00:00:00 00:00:00 Management Aleyda L Y HEALTH [id number] [place] [id number] [address] 2022-07-27 2022-07-27 Telephone Curtis Gotti [facility] [id number] Univers 00:00:00 00:00:00 Yamile R Y HEALTH [id number] [place] [id number] [address] 2022-07-05 2022-07-05 Outpatient [facility] [id number] Univers 10:30:00 10:30:00 [facility] 2022-06-29 2022-06-29 Outpatient EL CHRISTEN [facility] [id number] 10:45:11 11:18:20 [facility] 2022-06-29 2022-06-29 Office Christen [facility] [id number] 10:45:00 11:18:20 Visit [facility] 2022-06-29 2022-06-29 Case Kevinsotoadali, UNIVERSIT [id number] Univers 00:00:00 00:00:00 Management Yamile L Y HEALTH [id number] [place] [id number] [address] 2022-06-20 2022-06-20 [facility], UNIVERSIT [id number] Univers 00:00:00 00:00:00 [facility] [id number] i ty of [facility] 4.2.7.2.686 Domi stahl [id number] [place] [address] [address] 2022-05-04 2022-05-04 Outpatient Jacoby VIDAL [facility] [id number] Univers 10:00:00 10:00:00 ARMAND [facility] 2022-05-02 2022-05-02 HIRAL Hanson [id number] Univers 00:00:00 00:00:00 [facility] [id number] ity [facility] 4.2.7.2.686 Domi stahl [id number] [place] [address] [address] 2022-04-27 2022-04-27 Outpatient ABENA VELÁSQUEZ [facility] [id number] 12:02:05 12:02:18 [facility] 2022-04-27 2022-04-27 Audio - Christen [facility] [id number] 11:45:00 12:02:18 Telemedici Diamond garcia [facility] 2022-04-27 2022-04-27 Outpatient ABENA VELÁSQUEZ [facility] [id number] 00:00:00 00:00:00 [facility] 2022-04-13 2022-04-13 Outpatient ABENA VELÁSQUEZ [facility] [id number] 00:00:00 00:00:00 [facility] 2022-03-30 2022-03-30 Outpatient ABENA VELÁSQUEZ [facility] [id number] 00:00:00 00:00:00 [facility] 2022-02-09 2022-02-09 Outpatient ABENA VELÁSQUEZ [facility] [id number] 13:36:06 15:38:35 [facility] 2022-02-09 2022-02-09 Audio - Christen [facility] [id number] 13:00:00 15:38:35 Telemedici Diamond garcia [facility] 2022-01-05 2022-01-05 Office María Elenalynnette [facility] [id number] 10:00:00 11:00:40 [facility] 2022-01-05 2022-01-05 Outpatient ABENA MARÍA ELENALYNNETTE [facility] [id number] 09:20:50 11:00:40 [facility] 2022-01-03 2022-01-03 [facility] [id number] Univers 00:00:00 00:00:00 [facility] [id number] i [facility] 4.2.7.2.686 Rohitmiles stahl [id number] [facility] [address] 2021-12-28 2021-12-29 [facility] [id number] [facility] 07:26:00 16:22:00 [place] 2021-12-28 2021-12-29 [facility] [id number] 07:26:00 16:22:00 Encounter [facility] 2021-12-28 2021-12-28 Anesthesia Tarik Jaime [facility] [id number] [facility] 11:27:00 15:58:00 Event [facility] 2021-12-28 2021-12-28 Surgery Christen [facility] [id number] 10:00:00 13:30:00 [facility] 2021-12-28 2021-12-28 Travel [facility] [id number] [facility] 00[facility]00:00 00:00:00 [facility] 2021-12-23 2021-12-23 Outpatient EL SLSL [facility] [id number] [facility] 07:54:42 23:59:00 2021-12-23 2021-12-23 [facility] [id number] 07:54:42 23:59:00 Encounter [facility] 2021-12-21 2021-12-21 Telephone Christen [facility] [id number] 00:00:00 00:00:00 [facility] 2021-12-13 2021-12-13 Outpatient EL [facility] [id number] 11:13:22 11:50:35 [facility] 2021-12-13 2021-12-13 Audio - [facility] [id number] 08:30:00 11:50:35 Telemedici [facility] 2021-12-04 2021-12-04 [facility] [id number] Univers 00:00:00 00:00:00 [facility] 350.1.13.10 [facility] 4.2.7.2.686 Rohitmiles stahl [id number] [facility] [address] 2021-11-24 2021-11-24 Telephone [facility] [id number] 00:00:00 00:00:00 [facility] 2021-11-17 2021-11-17 [id number] 11:35:58 12:18:45 [facility] 2021-11-17 2021-11-17 Audio [facility] [id number] 11:30:00 12:18:45 Telemedici [facility] 2021-11-12 2021-11-12 Outpatient ABENA VELÁSQUEZ, [facility] Surgery [id number] [facility] 06:22:00 09:55:00 [place] 2021-11-12 2021-11-12 [facility] [id number] 06:22:00 09:55:00 Encounter [facility] 2021-11-12 2021-11-12 Surgery [facility] [id number] 09:00:00 09:30:00 [facility] 2021-11-12 2021-11-12 Anesthesia Tarik Jaime [facility] [id number] [facility] 08:49:00 09:16:00 Event [facility] 2021-11-09 2021-11-09 Outpatient EL SLSL [facility] [id number] [facility] 11:21:14 23:59:00 2021-11-09 2021-11-09 [facility] [id number] 11:21:14 23:59:00 Encounter [facility] 2021-10-27 2021-10-27 Travel [facility] [id number] [facility] 00:00:00 00:00:00 [facility] 2021-10-25 2021-10-25 Patient [facility], UNIVERSIT [id number] Univers 00:00:00 00:00:00 Secure [facility] 350.1.13.10 ity of [facility] 4.2.7.2.[place] [id number] [facility] [address] 2021-10-19 2021-10-19 Outpatient R [facility] [id number] Univers 08:00:00 10:42:42 [facility] 2021-10-19 2021-10-19 Office [facility], UNIVERS [id number] Univers 08:30:00 09:00:[address] 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 350.1.13.10 it[place] [id number] [address] 2021-09-29 2021-09-29 Office [facility] [id number] 09:00:00 10:44:28 Visit [facility] 2021-09-29 2021-09-29 Outpatient CHRISTEN [facility] [id number] 08:53:11 10:44:28 [facility] 2021-09-29 2021-09-29 Telephone HIRAL Vidal 1.2.840.114 [id number] Univers 00:00:00 00:00:00 [facility] 350.1.13.10 i ty of [place] [id number] [address] 2021-09-16 2021-09-16 Telephone [facility] 1.2.840.114 [id number] Univers 00:00:00 00:00:00 Félix C [employer] BONE GRINDER 350.1.13.10 ity of REGIONAL 4.2.7.2.686 Rohit as MATERNAL [id number] [facility] ical & CHILD [address] [place] [address] 2021-09-02 2021-09-02 Office [facility] [id number] Univers 08:15:00 08:42:18 Visit Félix Irvin [employer]ER 350.1.13.10 ity of REGIONAL 4.2.7.2.686 Rohit as MATERNAL [id number] [facility] & CHILD [address] [place] [address] 2021-09-02 2021-09-02 Outpatient R DIONY [facility] [id number] Univers 08:15:00 08:42:18 FÉLIX mendez o f [facility] 2021-09-02 2021-09-02 Outpatient R AKINSIPE, [facility] [id number] Univers 08:15:00 08:42:18 FÉLIX ity o dahlia [facility] 2021-09-02 2021-09-02 Outpatient R AKINSIPE, [facility] [id number] Univers 08:15:00 08:42:18 FÉLIX ity o f [facility] 2021-09-02 2021-09-02 Outpatient R AKINSIPE, [facility] [id number] Univers 08:15:00 08:15:00 FÉLIX ity o f [facility] 2021-08-18 2021-08-18 Outpatient R VIOLETA [facility] [id number] Univers 08:15:00 08:15:00 TIARANDA andrea o [facility] 2021-07-13 2021-07-13 Refabundio Young, UNIVERSIT [id number] Univers 00:00:00 00:00:00 [facility] 350.1.13.10 [facility] 4.2.7.2.686 [facility] [id number] [place] [address] [address] 2021-03-01 2021-03-01 Outpatient R [facility] [id number] Univers 16:00:00 16:00:00 [facility] 2021-01-29 2021-01-29 Outpatient R [facility] [id number] Univers 09:00:00 09:00:00 [facility] 2021-01-01 2021-01-01 Outpatient R [facility] [id number] Univers 08:30:00 08:30:00 [facility] 2020-12-04 2020-12-04 Outpatient R [facility] [id number] Univers 16:20:00 16:20:00 [facility] 2020-11-29 2020-11-29 Outpatient R [facility] [id number] Univers 09:20:00 09:20:00 [facility] 2020-11-17 2020-11-17 Outpatient R [facility] [id number] Univers 18:30:00 18:30:00 ity [facility] 2020-11-11 2020-11-11 Outpatient R [facility] [id number] Univers 18:40:00 18:40:00 [facility] 2020-11-07 2020-11-07 Outpatient R [facility] [id number] Univers 08:50:00 08:50:00 [facility] 2020-11-05 2020-11-05 Outpatient R SRINIVASAN, [facility] [id number] Univers 12:00:00 12:00:00 BHAVYA [facility] 2020-11-05 2020-11-05 Telephone Ope, Asisat 1.2.840.1 [id number] Methodi 00:00:00 00:00:[address] 3.430.2.7 Hospit a .3.057508 l .8 2020-11-04 2020-11-04 Telephone Ope, Asisat 1.2.840.1 [id number] Methodi 00:00:00 00:00:[address] 3.430.2.7 Hospit a .3.595996 l .8 2020-10-29 2020-10-29 Orders Ope, Jenniet 1.2.840.1 [id number] Methodi 00:00:00 00:00:[address] 3.430.2.7 Hospit a .3.880967 l .8 2020-10-26 2020-10-26 Hospital Ope, Asisat 1.2.840.1 [id number] 2 [id number] Methodi 10:35:51 23:59:[address] 3.430.2.7 Hospit a .3.774541 l .8 2020-10-26 2020-10-26 Travel 1.2.840.1 [id number] 2008 [id number] Methodi 00:00:00 00:00:00 [address] 3.430.2.7 0.2.7.3.698 Ho spita .3.354677 084.8 l .8 2020-10-26 2020-10-26 Telephone Raheem, 1.2.840.1 [id number] Methodi 00:00:00 00:00:00 Reina Irvin [address]3572.1.[address] 3.430.2.7 Hospit a .3.761929 l .8 2020-10-22 2020-10-22 Office Ope, Jenniet 1.2.840.1 [id number] Methodi 11:10:55 11:44:[address] 3.430.2.7 Hospit a .3.130295 l .8 2020-10-22 2020-10-22 Travel 1.2.840.1 1.2.975.609 [id number] Methodi 00:00:00 00:00:[address] 3.430.2.7 0.2.7.3.698 Ho spita .3.633133 084.8 l .8 2020-10-15 2020-10-15 [facility] [id number] Univers 14:00:00 14:00:00 BHAVYA [facility] 2020-08-11 2020-08-11 Outpatient R [facility] [id number] Univers 10:00:00 10:00:00 [facility] 2020-07-17 2020-07-17 [facility] [id number] Univers 08:30:00 08:30:00 FÉLIX mendez o dahlia [facility] 2020-06-19 2020-06-19 [facility] [id number] Univers 08:30:00 08:30:00 [facility] 2020-06-02 2020-06-02 [facility] [id number] Univers 09:30:00 09:30:00 [facility] 2020-02-11 2020-02-11 Outpatient FBCOVID FBCOVID [id number] FBCOVID 00:00:00 00:00:00 [id number] 1824-06-09 2020-01-21 [facility] [id number] Univers 09:15:00 09:15:00 KIESHA [facility] 2019-12-13 2019-12-13 Outpatient R [facility] [id number] Univers 10:30:00 10:30:00 [facility] 2019-12-09 2019-12-09 Outpatient R [facility] [id number] Univers 10:30:00 10:30:00 [facility] 2019-12-04 2019-12-04 Outpatient R [facility] [id number] Univers 09:30:00 09:30:00 [facility] 2019-11-18 2019-11-18 Outpatient R [facility] [id number] Univers 09:00:00 09:00:00 [facility] Results Test Description Test Time Test Comments Results Result Comments Source Tissue Exam 2021-12-30 13:03:30 Test Item Value Reference Range Interpretation Comme nts Case Report (test code = 104) Surgical Pathology Report Case: [id number] Authorizing Provider: Diamond Velásquez MD Collected: 12/28/2021 02:44 PM Ordering Location: [facility] Received: 12/29/2021 07:53 AM SERVICES Pathologist: Tish Espino MD Specimen: Soft Tissue, Other, PARTIAL GASTRECTOMY. DIAGNOSIS (test code = 3220) y3pifUFcNRRbq6ioUDIseGMwGzQuGwLaZtOxZa pc dWMxIHtccnRmMVxlcGljOTYwMlxhbnNpXHNwbHRw G3MwvzlaUXxzLI4bEE5vpMocyMUztWFpURDaPyNi g7jay650oEDzk6nzUIDWdovyfPk4iMizB35bg2B2 CsntW54xsQHuLYT2IRElBTEqqOTlQCXkZLR8OLMm nJYjH4glHVHrHD9dddqsFNsjVEmmDJQtcAT2VCFe kXQhX8GlRARcOZjdLQBbfld1XpQsPa1obUFlsDgu ZOuyVOXsICHlJPifWSRfNuDfI8YDWWOJOXiaSTNP EJIOE3EYOVkQIPZEYDGGXTKVGVNTQeUJOA4PYDoh nVUfTI7nH9rQC26GGlGUKIIQXfgKESBsW5jODBKE PJpdKDdJOKgOQLLfXg1EFZbYWVLIHVERRULRC7AW KLPQS6PPCzcZJEvlPVWvBBXRASDGY0ZIDGGRADEJ IA7UB7zmNGQdPLVKBeNFBaYMG7LHFxTOYY0FLSHR ZUACGFHsJ3WHScugDRIkWBNXYeLIBTKEGNWRQMDi W5QmZCDKTRjFEN3TPXKUYnNFUE5MQVSdanObQDlL SEPAH5qKB5SVC9uWXCaGMCvnH6RMYY3fEg1GGNaE NBtYT2OVZ9ZGHdICNRbYWiorAPTRRJCWLX8SLJYG EiJ9QTYSAHEYORVPZTZQTB2HJCDLNSmVKCBUYUfI L5oyACB6q8rhrXXzAJYxzCEzZFTzDHlrizJmFTMx XtfwrsjwLUKxWNY9yoSjBTOgCXvoOPGjJJhlSn0h uFRaeComWbZkZOOsp1yjduITlfgwrYf3s5bkBAZe XoM8vTRlFAqiC2yojoQznSVuYXLrDHp1yZ27QUJy hQ3bkMWcYYhauzElJgO0QWgnRHHhGsS2XELzpWVv TPRwO5fzVJIyRVwpDAMkDYttsHFhUZT8uLhyu3Q1 vBRwpLWyhOliTjWzMrMuLxCMt5MtPHw6oSkzV1Tp HVNmJaT7aABrMXMqUYxcAZXoBUBcnmP6jH85HQfg nyB4pUNxc1Fsq78ep112sO9uaYZmKYR0CSIqTONl oIExNINuDJE0CEYrqAZrW8vqJZJkGV1qpvglXStf SHnpIMHlkYP2AZMecVFrU7GkQLFuBFkgFIIsaok8 HoWjWf4bcAMioVbrCPohc9wjz3tupZIyIby5YJTl AiHtNhqvCAylq4Xig1zzHLVxlr5nWHE2nEDupAyz g1S3oHWjSPFazMXhBXCaWP3saFDzGTHczS9wadbc PJUmHfZuntxtXIKmnGpsgiPrSc0mjQicWXZ0YXfh X2skpP4fTqM8RHqqE0ffhY1oXJh2LDwtDKChlUQ7 hcM2DAPwxWYrW8CdyR6oQEUlLN0qlbp6z7dxGGD2 DQseJBHwLqX2vxL6TUItpTErEBIyjNeiSXrjy302 BTB2TeCcPQPgr3EiW9PnsTqxF23sbTzuT97rZEJg qAkaxC1cmYqyiS0gTeLkJwBpRBcmjOhuDP2aXWRe Z3tpeYVzIWQpJPTdO4zgDjGurO7diJnyDFffveKt MEDwOcq5DZKjwNFfBXImRmo3PCOkVNAuM54qsswq LQS6cJ8eg7ujt2ZjGUnwXKF0CXNnp27oCOrfpkZ2 SFT8RD31IzbfNnS6S1jeGJG5mR== CPT Code(s) (test code = 3357) o9xasDZhPSQdmCP0XkWiHJRic9cmf0AreSWx cGFy LHpeqCLhyqVdbm55rJS0xA85OG2iTUBlSmO1WYTt vxR2Ujz2PWWjZRRtrCLaB977a4her6ryvrUvjIE3 tIcxATMjshznFrW9XKllQPIokhndBCg1JQkaPGQc cHQ1IUXdyCOrL2CwKFQlTM4bkhf2KTY6AFpeFHQw CpT2KTWpbQHkVUMjfCahVBodp243GXI7XwJwCTXl reRvtKcqnZ3gUpXjDGD5QNVjN7wfVRV0 CLINICAL HISTORY (test code = 3356) b4dvfEChOWPnwRF9FpNkARGgg8fwq9S sdHBncGFy BIkdtUAwxqTtjx43sSE2aM55DQ6vZZCjCqV9ILRx ogC3Pvn6ORGtNSPrvRCyU985u8ljh5pohqSvbTA5 tOipGEAdjjdhHbP6WCteQBVcfoinRPm0CQzzPKOz fFF8RQLwzFTzG5CqEJZdQB2judp7ZEL2QDztOLOw HrX4LNMfpQVcEAIdfXtvDTqze416DPI5UeHjFZUh ypGygPbqoO6tBxVjWJHUd5TsxQZep2Jdx3h7lHwo O5AteMNrDJXsyBnqX1DucPHdRLEowCdkNQhxZFHp ZSBccGFyfQ== SPECIMEN SOURCE (test code = 3377) j1mdwSGpGINylHL0LfUvAEMhj2srb8Li dHBncGFy MYewnZWzohLwrr68jZW4kL86GX0nARDzGvX8JKHy cvU5Gro7TVDbYQGhqZPuD448z2uok3wwpkOguPI2 kZjxYZFpoolxBwW8JSvyZNZhnauuCPg6WAnpWSJa zXP4DNZoqNCvC2XiFDOrWB7vwuc0HQO4KZiqUYJy OiS3HBMnwTBwRZKjnDvfTNyez956GRQ0ZeLwMEPj mbUomOousS5iRhKsVJLIqS6xIHFpTCAbpd8= GROSS DESCRIPTION (test code = a3zqiXDgKHIojIM0XnXjKGUlm7jai9PirVTt cGy [id number]) [file] R9KgS6NwgcA5NQJrvc0= MICROSCOPIC DESCRIPTION (test code = r5ifuHLmXHVwzUX3IpLoXYDiv6ztp8 BsdHBncGFy 3371) VAqusOOoodVbrp90yGV0jI22TO6hHLDjKfV5KHQp jmC4Nwh9XUPrEDGslFKrY189f1kdi2acseMekMR2 sXtePDPkighrXkN9DBleFSBejulqIQi0LXwyAIPh tXY3NGVmjRBbW0SrDTBwTI5zttr1RVR9MQqvYIXy AvS0NKGhnXApKMGqkRwrEEfsz341ORJ8SyXxAONq fjPkfRetfA1lRgBtDWBWCDBGL3FSQXFxbZXfvW== [facility] [id number] 13:03:30Surgical Pathology Report Case: [id number] Authorizing Provider: Diamond Velásquez MD Collected: 12/28/2021 02:44 PM Ordering Location: [facility] Received: 12/29/2021 07:53 AM SERVICESPathologist: Tish Espino MD Specimen: Soft Tissue, Other, PARTIAL GASTRECTOMY. STOMACH, LAPAROSCOPIC SLEEVE GASTRECTOMY:- CHRONIC GASTRITIS WITH FEW LYMPHOID FOLLICLES AND FOCAL ACTIVITY- SEROSAL ADHESIONS- NO INTESTINAL METAPLASIA SEEN- NO DYSPLASIA OR MALIGNANCY PRESENT- IMMUNOHISTOCHEMICAL STAIN FOR HELICOBACTER PYLORI ARE BEING DONE; ADDENDUM REPORT WILL FOLLOW Signing Pathologist Direct Phone Line: [phone] signed by Tish Espino MD on 12/30/2021 at 1:03 [id number] obesity, gastroesophageal reflux disease StomachA. Soft Tissue, Other.Received in formalin labeled with the patient's information and labeled "soft tissue, other" is a specimen of partial gastrectomy that is unoriented and stapled at the margin. The specimen is S-shaped wider at 2 poles and thinner in the middle. The dimensions of the specimen are 13 cm x up to 5 cm x up to 1.8 cm. The serosa is congested with very scant adipose tissue and fibrous adhesions. The specimen Is opened to reveal blood clot in the lumen. The mucosa is congested. No focal lesions are identified. Still Pump Operator sections are submitted in A1 and A2. A3 is section of one of the margins. BH/plPERFORMED BASIC METABOLIC [id number] 06:24:13 Test Item Value Reference Range Interpretation Comments SODIUM (BEAKER) (test 136 meq/L 135-148 code = 381) POTASSIUM (BEAKER) 4.2 meq/L 3.6-5.5 (test code = 379) CHLORIDE (BEAKER) 107 meq/L 98-106 H (test code = 382) CO2 (BEAKER) (test 21 meq/L 20-29 code = 355) BLOOD UREA NITROGEN 10 mg/dL 10-26 (BEAKER) (test code = 354) CREATININE (BEAKER) 0.72 mg/dL 0.50-1.20 (test code = 358) GLUCOSE RANDOM 101 mg/dL 70-110 (BEAKER) (test code = 652) CALCIUM (BEAKER) 7.9 mg/dL 8.5-10.5 L (test code = 697) EGFR (BEAKER) (test INSUFFIC IENT CLINICAL code = 1092) DATA TO CALCULA TE ESTIMATED GFR. County Adviser ID - [id number] ID - [id number] ID - [id number] ID - [id number] ID - tqkl27Aiuetwig ID - [id number] ID - [id number] ID - vgng25Vcaryerq ID - seuw08Dwrhuwkd ID - skbr57Qfmvpyel ID - pbvk79Pscwfvzn ID - cove17Wjrsozfj ID - [id number] W/PLT COUNT & AUTO [id number] 05:37:08 Test Item Value Reference Range Interpretation Comments WHITE BLOOD CELL COUNT (BEAKER) 7.4 K/ L 4.0-10.0 (test code = 775) RED BLOOD CELL COUNT (BEAKER) 3.89 M/ L 4.00-5.00 L (test code = 761) HEMOGLOBIN (BEAKER) (test code = 11.9 GM/DL 12.0-15.5 L 410) HEMATOCRIT (BEAKER) (test code = 35.8 % 36.0-46.0 L 411) MEAN CORPUSCULAR VOLUME (BEAKER) 92.0 fL 82.0-99.0 (test code = 753) MEAN CORPUSCULAR HEMOGLOBIN 30.6 pg 27.0-33.0 (BEAKER) (test code = 751) MEAN CORPUSCULAR HEMOGLOBIN CONC 33.2 GM/DL 32.0-36.0 (BEAKER) (test code = 752) RED CELL DISTRIBUTION WIDTH 12.4 % 12.0-15.0 (BEAKER) (test code = 412) PLATELET COUNT (BEAKER) (test 234 K/CU MM 150-430 code = 756) MEAN PLATELET VOLUME (BEAKER) 10.2 fL 6.0-11.5 (test code = 754) NUCLEATED RED BLOOD CELLS 0 /100 WBC 0-0 (BEAKER) (test code = 413) NEUTROPHILS RELATIVE PERCENT 73 % (BEAKER) (test code = 429) LYMPHOCYTES RELATIVE PERCENT 16 % (BEAKER) (test code = 430) MONOCYTES RELATIVE PERCENT 11 % (BEAKER) (test code = 431) EOSINOPHILS RELATIVE PERCENT 0 % (BEAKER) (test code = 432) BASOPHILS RELATIVE PERCENT 0 % (BEAKER) (test code = 437) NEUTROPHILS ABSOLUTE COUNT 5.37 K/ L 1.80-8.00 (BEAKER) (test code = 670) LYMPHOCYTES ABSOLUTE COUNT 1.17 K/ L 1.48-4.50 L (BEAKER) (test code = 414) MONOCYTES ABSOLUTE COUNT (BEAKER) 0.79 K/ L 0.00-1.30 (test code = 415) EOSINOPHILS ABSOLUTE COUNT 0.00 K/ L 0.00-0.50 (BEAKER) (test code = 416) BASOPHILS ABSOLUTE COUNT (BEAKER) 0.01 K/ L 0.00-0.20 (test code = 417) IMMATURE GRANULOCYTES-RELATIVE 0 % 0-0 PERCENT (BEAKER) (test code = 2801) POC-Glucose [id number] 03:19:18 Test Item Value Reference Range Interpretation Comments POC-Glucose Meter (test 119 mg/dL 70-110 H : TE STED AT [facility] code = 1538) [address] [facility], [facility] [address]: County Adviser/Techni juana ID = [id number] for Priya Ocampo Lab Interpretation (test Abnormal code = 21229-4) [facility] [id number] 03:19:18 Test Item Value Reference Range Interpretation Comments POC-GLUCOSE METER 119 mg/dL 70-110 H : TESTED A T SLS 1317 (BEAKER) (test [facility], = 1538) [facility] [address]: County Adviser/Techni juana ID = [id number] for Priya Poole Screen, [id number] 08:30:17 Test Item Value Reference Range Interpretation Comments Preg Test, Ur (test code = 2112-1) Negative [facility], [id number] 08:30:17 Test Item Value Reference Range Interpretation Comments TEST URINE (BEAKER) (test Negative code = 583) SARS-CoV2/RT-PCR (Asymptomatic ONLY)2021-12-23 13:46:19 Test Item Value Reference Interpretation Comments Range SARS-COV2/RT-PCR Negative Negative The SARS-Co V-2 (test code = target nucleic 05922-0) acids are not detected in thi s specimen. Negat maki results do not preclude SARS-C oV-2 infection and should not be u sed as the sole bas is for patient management decisions. Nega tive results must be combined with clinical observations, patient history , and epidemiolog ical information. A false negative result may occu r if a specimen is improperly collected, transported or handled. This S ARS CoV-2 test is a rapid, real-ewelina e RT-PCR test intended for th e qualitative detection of nucleic acid fr om SARS-CoV-2 in a nasopharyngeal swab specimen collec bridgette from individual s suspected of COVID-19 by the ir healthcare provider. WILMA (test code = This test has been WILMA) authorized by FDA under an EUA for use by authorized laboratories. This test is only authorized for the duration of the declaration that circumstances exist justifying the authorization of emergency use of in vitro diagnostic tests for detection and/or diagnosis of COVID-19 under Section 564(b)(1) of the Federal Food, Drug and Cosmetic Act, 21 U.S.C. 360bbb-3(b)(1), unless the authorization is terminated or revoked sooner. Fact Sheet for Healthcare Providers: https://www.[employer]/Documents/Xp ert%20Xpress%20SAR S%20CoV-2/Fact%20S heets/302-2592%20S ARS-COV-2%20HEALTH CARE%20PROVIDERS%2 0FACT%20SHEET.pdf Fact Sheet for Healthcare Patients: https://www.[employer]/Documents/Xp ert%20Xpress%20SAR S%20CoV-2/Fact%20S heets/3023801%20S ARS-COV-2%20PATIEN T%20FACT%20SHEET.p df Lab Interpretation Normal (test code = 34945-9) [facility])2021-12-23 13:46:19 Test Item Value Reference Range Interpretation Comments SARS-COV2/RT-PCR Negative Negative The SARS-Co V-2 target (test code = nucleic acids a re not 9872801) detected in thi s specimen. Negative result s do not preclude SARS-C oV-2 infection and s hould not be used as the taylor e basis for patient managem ent decisions. Nega tive results must be combine d with clinical observ ations, patient history , and epidemiological information. A false negativ e result may occur if a spec imen is improperly brice ected, transported or handled. This SARS CoV-2 test is a rapid, real-time RT-PC R test intended for th e qualitative detection of nu cleic acid from SARS-CoV-2 in a nasopharyngeal swab specimen collected from individuals suspected of CO VID-19 by their healthcar e provider. This test has been authorized by FDA under an EUA for use by authorized laboratories. This test is only authorized for the duration of the declaration that circumstances exist justifying the authorization of emergency use of in vitro diagnostic tests for detection and/or diagnosis of COVID-19 under Section 564(b)(1) of the Federal Food, Drug and Cosmetic Act, 21 U.S.C. 360bbb-3(b)(1), unless the authorization is terminated or revoked sooner. Fact Sheet for Healthcare Providers: https://www.[employer] m/Documents/Xpert%20Xpress%20SARS%20CoV-2/Fact%20Sheets/656-3782%92AAKE-ZPG-1%20 HEALTHCARE%20PROVIDERS%20FACT%20SHEET.pdf Fact Sheet for Healthcare Patients: https://www.[employer]/Documents/Xpert%20Xp ress%20SARS%20CoV-2/Fact%20Sheets/3023801%48SVOS-SIW-2%20PATIENT%20FACT%20SHEET .pdfVITAMIN D, [id number] 10:29:44 Test Item Value Reference Range Interpretation Comments VITAMIN D 25-OH (BEAKER) (test 11.3 ng/mL 6.6-49.9 code = 2764) Effective 05/24/2017: Reference Range ChangeNew: 6.6-49.9 ng/mL Previous: 13.0- 47.8 ng/mLRecommendedVitamin D Target Range: 30.0-40.0 ng/mLOperator ID - BS FOLATE, [id number] 09:12:28 Test Item Value Reference Range Interpretation Comments FOLATE (BEAKER) 10.30 ng/mL See_Comment [Automated message] (test code = 362) The system which generated this result transmitted ref erence range: >=5.4. T he reference range was not used to interpr et this result as normal/abnormal . County Adviser ID - DSENSONVITAMIN [id number] 09:04:01 Test Item Value Reference Range Interpretation Comments VITAMIN B12 (BEAKER) (test code = 541 pg/mL 211-911 774) County Adviser ID - DSENSONCOMPREHENSIVE METABOLIC [id number] 08:43:55 Test Item Value Reference Range Interpretation Comments TOTAL PROTEIN 7.1 gm/dL 6.0-8.5 (BEAKER) (test code = 770) ALBUMIN (BEAKER) 3.8 g/dL 3.5-5.0 (test code = 1145) ALKALINE PHOSPHATASE 67 U/L 30-115 (BEAKER) (test code = 346) BILIRUBIN TOTAL 0.4 mg/dL 0.1-1.2 (BEAKER) (test code = 377) SODIUM (BEAKER) (test 142 meq/L 135-148 code = 381) POTASSIUM (BEAKER) 3.9 meq/L 3.6-5.5 (test code = 379) CHLORIDE (BEAKER) 107 meq/L 98-106 H (test code = 382) CO2 (BEAKER) (test 24 meq/L 20-29 code = 355) BLOOD UREA NITROGEN 11 mg/dL 10-26 (BEAKER) (test code = 354) CREATININE (BEAKER) 0.82 mg/dL 0.50-1.20 (test code = 358) GLUCOSE RANDOM 86 mg/dL 70-110 (BEAKER) (test code = 652) CALCIUM (BEAKER) 8.7 mg/dL 8.5-10.5 (test code = 697) AST (SGOT) (BEAKER) 15 U/L 5-40 (test code = 353) ALT (SGPT) (BEAKER) 9 U/L 5-50 (test code = 347) EGFR (BEAKER) (test INSUFFIC IENT CLINICAL code = 1092) DATA TO CALCULA TE ESTIMATED GFR. County Adviser ID - DSENSONOperator ID - DSENSONOperator ID - DSENSONOperator ID - DSENSONOperator ID - DSENSONOperator ID - DSENSONOperator ID - DSENSONOperator ID - DSENSONOperator ID - DSENSONOperator ID - DSENSONOperator ID - DSENSONOperator ID - DSENSONOperator ID - DSENSONOperator ID - DSENSONOperatorID - DSENSONOperator ID - DSENSONOperator ID - DSENSONOperator ID - DSENSONOperator ID - DSENSONIRON, [id number] 08:36:20 Test Item Value Reference Range Interpretation Comments IRON (BEAKER) (test code = 547) 52.0 ug/dL 45.0-170.0 County Adviser ID - DSENSONHEMOGLOBIN [id number] 08:27:13 Test Item Value Reference Range Interpretation Comments HEMOGLOBIN A1C (BEAKER) (test code = 4.4 % 4.3-6.1 368) County Adviser ID - DSENSONCBC W/PLT COUNT & AUTO [id number] 08:13:48 Test Item Value Reference Range Interpretation Comments WHITE BLOOD CELL COUNT (BEAKER) 7.3 K/ L 4.0-10.0 (test code = 775) RED BLOOD CELL COUNT (BEAKER) 4.05 M/ L 4.00-5.00 (test code = 761) HEMOGLOBIN (BEAKER) (test code = 12.7 GM/DL 12.0-15.5 410) HEMATOCRIT (BEAKER) (test code = 36.9 % 36.0-46.0 411) MEAN CORPUSCULAR VOLUME (BEAKER) 91.1 fL 82.0-99.0 (test code = 753) MEAN CORPUSCULAR HEMOGLOBIN 31.4 pg 27.0-33.0 (BEAKER) (test code = 751) MEAN CORPUSCULAR HEMOGLOBIN CONC 34.4 GM/DL 32.0-36.0 (BEAKER) (test code = 752) RED CELL DISTRIBUTION WIDTH 12.3 % 12.0-15.0 (BEAKER) (test code = 412) PLATELET COUNT (BEAKER) (test 220 K/CU MM 150-430 code = 756) MEAN PLATELET VOLUME (BEAKER) 9.3 fL 6.0-11.5 (test code = 754) NUCLEATED RED BLOOD CELLS 0 /100 WBC 0-0 (BEAKER) (test code = 413) NEUTROPHILS RELATIVE PERCENT 71 % (BEAKER) (test code = 429) LYMPHOCYTES RELATIVE PERCENT 20 % (BEAKER) (test code = 430) MONOCYTES RELATIVE PERCENT 8 % (BEAKER) (test code = 431) EOSINOPHILS RELATIVE PERCENT 1 % (BEAKER) (test code = 432) BASOPHILS RELATIVE PERCENT 0 % (BEAKER) (test code = 437) NEUTROPHILS ABSOLUTE COUNT 5.17 K/ L 1.80-8.00 (BEAKER) (test code = 670) LYMPHOCYTES ABSOLUTE COUNT 1.46 K/ L 1.48-4.50 L (BEAKER) (test code = 414) MONOCYTES ABSOLUTE COUNT (BEAKER) 0.59 K/ L 0.00-1.30 (test code = 415) EOSINOPHILS ABSOLUTE COUNT 0.04 K/ L 0.00-0.50 (BEAKER) (test code = 416) BASOPHILS ABSOLUTE COUNT (BEAKER) 0.01 K/ L 0.00-0.20 (test code = 417) IMMATURE GRANULOCYTES-RELATIVE 0 % 0-0 PERCENT (BEAKER) (test code = 2801) SCREEN, [id number] 07:21:24 Test Item Value Reference Range Interpretation Comments TEST URINE (BEAKER) (test Negative code = 583) SARS-COV2/RT-PCR ([facility])2021-11-09 13:59:12 Test Item Value Reference Range Interpretation Comments SARS-COV2/RT-PCR Negative Negative The SARS-Co V-2 target (test code = nucleic acids a re not [id number]) detected in thi s specimen. Negative result s do not preclude SARS-C oV-2 infection and s hould not be used as the taylor e basis for patient managem ent decisions. Nega tive results must be combine d with clinical observ ations, patient history , and epidemiological information. A false negativ e result may occur if a spec imen is improperly brice ected, transported or handled. This SARS CoV-2 test is a rapid, real-time RT-PC R test intended for th e qualitative detection of nu cleic acid from SARS-CoV-2 in a nasopharyngeal swab specimen collected from individuals suspected of CO VID-19 by their healthcar e provider. This test has been authorized by FDA under an EUA for use by authorized laboratories. This test is only authorized for the duration of the declaration that circumstances exist justifying the authorization of emergency use of in vitro diagnostic tests for detection and/or diagnosis of COVID-19 under Section 564(b)(1) of the Federal Food, Drug and Cosmetic Act, 21 U.S.C. 360bbb-3(b)(1), unless the authorization is terminated or revoked sooner. Fact Sheet for Healthcare Providers: https://www.[employer] m/Documents/Xpert%20Xpress%20SARS%20CoV-2/Fact%20Sheets/302-3802%35HIIU-AAO-6%20 HEALTHCARE%20PROVIDERS%20FACT%20SHEET.pdf Fact Sheet for Healthcare Patients: https://www.[employer]/Documents/Xpert%20Xp ress%20SARS%20CoV-2/Fact%20Sheets/302-3801%71QBJS-HKS-3%20PATIENT%20FACT%20SHEET .pdfCD 11/19 [id number] 21:10:00 Test Item Value Reference Range Interpretation Comments CD4 absolute count 704 /uL 359-1519 (test code = 06128-0) CD4% (test code = 44.0 % 30.8-58.5 8123-2) CD8 absolute count 501 /uL 109-897 (test code = 13677-6) CD8% (test code = 31.3 % 12.0-35.5 8101-8) CD4/CD8 ratio (test 0.92-3.72 code = 62819-9) WBC (test code = See_Comment [Automated 6690-2) message] The system which generated this result transmit bridgette reference range : 3.4 - 10.8 x10E3/uL. The reference range was not used to interpret this result as normal/abnormal . RBC (test code = See_Comment [Automated 789-8) message] The system which generated this result transmit bridgette reference range : 3.77 - 5.28 x10E6/uL. The reference range was not used to interpret this result as normal/abnormal . HGB (test code = 12.4 g/dL 11.1-15.9 718-7) HCT (test code = 36.6 % 34.0-46.6 4544-3) MCV (test code = 90 fL 79-97 787-2) MCH (test code = 30.5 pg 26.6-33.0 785-6) MCHC (test code = 33.9 g/dL 31.5-35.7 786-4) RDW (test code = 13.0 % 11.7-15.4 788-0) Platelet count See_Comment [Automated (test code = 777-3) message] The system which generated this result transmit bridgette reference range : 150 - 450 x10E3/uL. The reference range was not used to interpret this result as normal/abnormal . Neutrophils (test 58 % Not Estab. code = 770-8) Lymphocytes (test 29 % Not Estab. code = 736-9) Monocytes (test 11 % Not Estab. code = 5905-5) Eosinophils (test 2 % Not Estab. code = 713-8) Basophils (test 0 % Not Estab. code = 706-2) Neutrophils, See_Comment [Automated absolute (test code message] The = 751-8) system which generated this result transmit bridgette reference range : 1.4 - 7.0 x10E3/uL. The reference range was not used to interpret this result as normal/abnormal . Lymphocytes, See_Comment [Automated absolute (test code message] The = 731-0) system which generated this result transmit bridgette reference range : 0.7 - 3.1 x10E3/uL. The reference range was not used to interpret this result as normal/abnormal . Monocytes, absolute See_Comment [Automa bridgette (test code = 742-7) message] The system which generated this result transmit bridgette reference range : 0.1 - 0.9 x10E3/uL. The reference range was not used to interpret this result as normal/abnormal . Eosinophils, See_Comment [Automated absolute (test code message] The = 711-2) system which generated this result transmit bridgette reference range : 0.0 - 0.4 x10E3/uL. The reference range was not used to interpret this result as normal/abnormal . Basophils, absolute See_Comment [Automa bridgette (test code = 704-7) message] The system which generated this result transmit bridgette reference range : 0.0 - 0.2 x10E3/uL. The reference range was not used to interpret this result as normal/abnormal . Immature 0 % Not Estab. granulocytes (test code = 35219-5) Immature grans See_Comment [Automated (abs) (test code = message] The 84212-5) system which generated this result transmit bridgette reference range : 0.0 - 0.1 x10E3/uL. The reference range was not used to interpret this result as normal/abnormal . [facility] (test code = Performed at: [facility]) - [facility] [id number] Director: Varinder Alvarenga MD, Phone: [phone] [facility] [id number] 20:09:00 Test Item Value Reference Range Interpretation Comments WBC, UA (test code 0-5 See_Comment [Automat ed = 5821-4) message] The system which generated this result transmit bridgette reference range : 0 - 5 /hpf. The reference range was not used to interpret this result as normal/abnormal . RBC, UA (test code 0-2 See_Comment [Automat ed = 77524-4) message] The system which generated this result transmit bridgette reference range : 0 - 2 /hpf. The reference range was not used to interpret this result as normal/abnormal . Epithelial cells 0-10 See_Comment [Automated (non renal) (test message] T he code = 5787-7) system which generated this result transmit bridgette reference range : 0 - 10 /hpf. The reference range was not used to interpret this result as normal/abnormal . Mucus, UA (test Present Not Estab. code = 8247-9) Bacteria, UA (test None seen None seen/Few code = 5769-5) WILMA (test code = Performed at: WILMA) [facility] [id number] Director: Varinder Alvarenga MD, Phone: [phone] [facility], COMPLETE, WITH REFLEX TO [id number] 20:09:00 Test Item Value Reference Range Interpretation Comments Specific gravity, 1.005-1.030 urine (test code = 2965-2) pH, urine (test code 5.0-7.5 H = 5803-2) Color, UA (test code Yellow Yellow = 5778-6) Appearance (test code Clear Clear = 5767-9) WBC esterase, urine Trace Negative A (test code = 5799-2) Protein, UA (test Negative Negative/Trace code = 50508-7) Glucose, urine (test Negative Negative code = 2349-9) Ketones, UA (test Negative Negative code = 2514-8) Occult blood, urine Negative Negative (test code = 5794-3) Bilirubin, UA (test Negative Negative code = 5770-3) Urobilinogen, UA 1.0 mg/dL 0.2-1.0 (test code = 54414-5) Nitrite, UA (test Negative Negative code = 5802-4) Microscopic See below: Microscopic was examination (test indicated and was code = 47136-2) performed. Urinalysis reflex Comment This speci men has (test code = 2386) reflexed to a Urine Culture. WILMA (test code = WILMA) Performed at: [facility] [id number] Director: Varinder Alvarenga MD, Phone: [phone] Lab Interpretation Abnormal (test code = 11882-9) [facility] Hospital[facility] Culture, [id number] 20:09:00Urine cultureMixed urogenital floraLess than 10,000 colonies/mL [facility]/2 Ab [id number] 22:09:00 Test Item Value Reference Range Interpretation Comments HIV-1 antibody (test Positive Negative A code = 92781-0) HIV-2 antibody (test Negative Negative code = 5224-1) Interpretation (test HIV-1 Positive A Labor atory code = 2078001) 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 WILMA (test code = WILMA) Performed at: [facility] [id number] Director: Varinder Alvarenga MD, Phone: [phone] Lab Interpretation Abnormal (test code = 88256-8) [facility]HIV [facility]/2 ANTIGEN/ANTIBODY, FOURTH GENERATION [id number] 22:09:00 Test Item Value Reference Interpretation Comments Range HIV AG/AB 4th gen Reactive Non Reactive A Please ref er to the (test code = Final Interpret ation. 21086-7) Results reactiv e byHIV Antigen/Antibod y EIA must be confirm ed by the HIV testingalgorith m to be considered indicative of a true HIV infection. WILMA (test code = Performed at: WILMA) - [facility] [id number] Director: Varinder Alvarenga MD, Phone: [phone] Lab Interpretation Abnormal (test code = 51801-0) [facility] with platelet and [id number] 14:13:00 Test Item Value Reference Range Interpretation Comments WBC (test code = See_Comment [Automated 3333-2) message] The system which generated this result transmit bridgette reference range : 3.4 - 10.8 x10E3/uL. The reference range was not used to interpret this result as normal/abnormal . RBC (test code = See_Comment [Automated 659-8) message] The system which generated this result transmit bridgette reference range : 3.77 - 5.28 x10E6/uL. The reference range was not used to interpret this result as normal/abnormal . HGB (test code = 12.7 g/dL 11.1-15.9 718-7) HCT (test code = 38.6 % 34.0-46.6 4544-3) MCV (test code = 91 fL 79-97 787-2) MCH (test code = 30.0 pg 26.6-33.0 785-6) MCHC (test code = 32.9 g/dL 31.5-35.7 786-4) RDW (test code = 12.7 % 11.7-15.4 788-0) Platelet count See_Comment [Automated (test code = 927-3) message] The system which generated this result transmit bridgette reference range : 150 - 450 x10E3/uL. The reference range was not used to interpret this result as normal/abnormal . Neutrophils (test 56 % Not Estab. code = 770-8) Lymphocytes (test 36 % Not Estab. code = 736-9) Monocytes (test 8 % Not Estab. code = 5905-5) Eosinophils (test 0 % Not Estab. code = 713-8) Basophils (test 0 % Not Estab. code = 706-2) Neutrophils, See_Comment [Automated absolute (test code message] The = 751-8) system which generated this result transmit bridgette reference range : 1.4 - 7.0 x10E3/uL. The reference range was not used to interpret this result as normal/abnormal . Lymphocytes, See_Comment [Automated absolute (test code message] The = 731-0) system which generated this result transmit bridgette reference range : 0.7 - 3.1 x10E3/uL. The reference range was not used to interpret this result as normal/abnormal . Monocytes, absolute See_Comment [Automa bridgette (test code = 742-7) message] The system which generated this result transmit bridgette reference range : 0.1 - 0.9 x10E3/uL. The reference range was not used to interpret this result as normal/abnormal . Eosinophils, See_Comment [Automated absolute (test code message] The = 481-2) system which generated this result transmit bridgette reference range : 0.0 - 0.4 x10E3/uL. The reference range was not used to interpret this result as normal/abnormal . Basophils, absolute See_Comment [Automa bridgette (test code = 704-7) message] The system which generated this result transmit bridgette reference range : 0.0 - 0.2 x10E3/uL. The reference range was not used to interpret this result as normal/abnormal . Immature 0 % Not Estab. granulocytes (test code = 57461-2) Immature grans See_Comment [Automated (abs) (test code = message] The 60308-2) system which generated this result transmit bridgette reference range : 0.0 - 0.1 x10E3/uL. The reference range was not used to interpret this result as normal/abnormal . Hematology Note: Verified by comments: (test microscopic code = 41783-3) examination. WILMA (test code = Performed at: IWLMA) - [facility] [id number] Director: Varinder Alvarenga MD, Phone: [phone] [facility] HospitalProthrombin time with [id number] 14:13:00 Test Item Value Reference Range Interpretation Comments INR (test code = 0.9-1.2 Reference i nterval 6301-6) is for non-anticoagula bridgette patients.Sugges bridgette INR therapeutic range for Vitam in Kantagonist therapy: Standa rd Dose (moderate intensity therapeutic range): 2.0 - 3 .0 Higher intensit y therapeutic ran ge 2.5 - 3.5 Prothrombin time See_Comment [Automated (test code = message] The 5902-2) system which generated this result transmit bridgette reference range : 9.1 - 12.0 sec. The reference range was not u sed to interpret th is result as normal/abnormal . WILMA (test code = Performed at: WILMA) - [address] [id number] Director: Varinder Alvarenga MD, Phone: [phone] [facility] HospitalPartial thromboplastin time, [id number] 14:13:00 Test Item Value Reference Range Interpretation Comments aPTT (test See_Comment This test has n ot been [place] = [place] [address]-2) monitoring unfractionated heparintherapy. aPTT-based ther apeutic ranges for unfractionated heparintherapy have not been establ ished. For general marycarmen delines onHeparin monit oring, refer to the [facility] Directory of Se rvices. [Automated mess age] The system [employer] h generated this result transmitted ref erence range: 24 - 33 sec. The reference r taylor was not used to interpret this result as normal/abnor mal. WILMA (test Performed at: - code = WILMA) [address] [id number] Director: Varinder Alvarenga MD, Phone: [phone] [facility] HospitalhC qualitative, urine [id number] 14:13:00 Test Item Value Reference Range Interpretation Comments test, urine Negative Negative (test code = 2106-3) WILMA (test code = WILMA) Performed at: - [address] [id number] Director: Varinder Alvarenga MD, Phone: [phone] [facility] [id number] 05:07:00 Test Item Value Reference Range Interpretation Comments Glucose (test code 79 mg/dL 65-99 = 2345-7) BUN (test code = 11 mg/dL 6-20 3094-0) Creatinine (test 0.81 mg/dL 0.57-1.00 code = 2160-0) EGFR Non-Afr. 97 mL/min/1.[address] >59 [place] (test code = 2775) EGFR 112 mL/min/1.[address]59 [place] (test code = 2774) BUN/creatinine 9-23 ratio (test code = 3097-3) Sodium (test code = 139 mmol/L 682-870 5800-2) Potassium (test 4.9 mmol/L 3.5-5.2 code = 2823-3) Chloride (test code 102 mmol/L 96-106 = 2075-0) CO2 (test code = 24 mmol/L 20-29 2027-9) Calcium (test code 9.2 mg/dL 8.7-10.2 = 17588-2) Protein (test code 6.8 g/dL 6.0-8.5 = 2885-2) Albumin, S (test 4.4 g/dL 3.8-4.8 code = 1751-7) Globulin, total 2.4 g/dL 1.5-4.5 (test code = 52497-0) Albumin/globulin 1.2-2.2 ratio (test code = 1759-0) Total bilirubin 0.5 mg/dL 0.0-1.2 (test code = 1975-2) Alkaline See_Comment [Automated phosphatase (test message] T he code = 6768-6) system which generated this result transmit bridgette reference range : 39 - 117 IU/L. The reference range was not used to interpret this result as normal/abnormal . AST (test code = See_Comment [Automated 1920-03) message] The system which generated this result transmit bridgette reference range : 0 - 40 IU/L. The reference range was not used to interpret this result as normal/abnormal . ALT (test code = See_Comment [Automated 1742-01) message] The system which generated this result transmit bridgette reference range : 0 - 32 IU/L. The reference range was not used to interpret this result as normal/abnormal . WILMA (test code = Performed at: 01 WILMA) - [facility] [address] [place], [place] [id number] Director: Varinder Alvarenga MD, Phone: [phone] [facility] 12 [id number] 21:12:11 Test Item Value Reference Range Interpretation Comments Ventricular rate (test code = 253) Atrial rate (test code = 255) SD interval (test code = 266) QRSD interval (test code = 260) QT interval (test code = 264) QTC interval (test code = 265) P axis 1 (test code = 267) QRS axis 1 (test code = 268) T wave axis (test code = 270) EKG impression (test Normal sinus code = 273) rhythm-Normal ECG-No previous ECGs available-Electronica lly Signed By Bill Blackmon MD ([id number]) on 10/22/2020 3:12:07 PM [facility]
--- NOTE | 2022-08-19 12:16 | RAD REPORT ---
EXAM DESCRIPTION: RAD - Shoulder Left 2 View - 08/19/2022 12:10 pm CLINICAL HISTORY: Pain COMPARISON: No comparisons FINDINGS/IMPRESSION: No acute fracture. No malalignment. No significant focal degenerative changes.
[2022-08-19] MEDS ORDERED: CYCLOBENZAPRINE 10 MG TAB ONE (12:58)
--- NOTE | 2022-08-19 12:58 | ER ---
Nurse's Notes [facility] [place], [place] Name: Celena Keenan Age: 32 yrs Sex: Female : 1990 Arrival Date: 08/19/2022 Time: 11:06 Bed 11 Private MD: Diagnosis: Fall on same level from slipping, tripping and stumbling without subsequent striking against object;Contusion of left shoulder Presentation: 08/19 11:29 Chief complaint: Patient states: she fell off of her electric scooter approx one week ap3 ago and has been having left shoulder and left arm pain since the fall. she is concerned about a possible fracture. Coronavirus screen: At this time, the client does not indicate any symptoms associated with coronavirus-19. Ebola Screen: No symptoms or risks identified at this time. Initial Sepsis Screen: Does the patient meet any 2 criteria? No. Patient's initial sepsis screen is negative. Does the patient have a suspected source of infection? No. Patient's initial sepsis screen is negative. Risk Assessment: Do you want to hurt yourself or someone else? Patient reports no desire to harm self or others. Onset of symptoms was August 12, 2022. 11:29 Method Of Arrival: Ambulatory ap3 11:29 Acuity: FAY 4 ap3 Triage Assessment: 11:32 General: Appears in no apparent distress. Behavior is calm, cooperative. Pain: ap3 Complains of pain in left arm \T\ left shoulder Pain currently is 7 out of 10 on a pain scale. Alleviated by medications, rest, Aggravated by weight bearing. Neuro: Level of Consciousness is awake, alert, obeys commands, Oriented to person, place, time, situation, Gait is steady. Cardiovascular: Patient's skin is warm and dry. Respiratory: Airway is patent Respiratory effort is even, unlabored, Respiratory pattern is regular, symmetrical. 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 - Social history:: Smoking status: Patient denies any tobacco usage or history of. Patient uses alcohol, occasionally. Screenin:33 [facility] ED Fall Risk Assessment (Adult) History of falling in the last 3 months, ap3 including since admission No falls in past 3 months (0 pts). Abuse screen: Denies threats or abuse. Nutritional screening: No deficits noted. Tuberculosis screening: No symptoms or risk factors identified. Vital Signs: 11:29 BP 110 / 74; Pulse 85; Resp 17; Temp 98.2; Pulse Ox 100% ; Weight 106.59 kg; Height 5 ap3 ft. 6 in. (167.64 cm); Pain 7/10; 11:29 Body Mass Index 37.93 (106.59 kg, 167.64 cm) ap3 ED Course: 11:06 Patient arrived in ED. am2 11:18 Mya Billy FNP-C is PHCP. snw 11:18 Dl Mars DO is Attending Physician. snw 11:30 Triage completed. ap3 11:33 Arm band placed on right wrist. ap3 11:44 Josephine Alonso, KELLY is Primary Nurse. kr3 12:12 Shoulder Left (2 View) XRAY In Process Unspecified. EDMS Administered Medications: 12:58 Not Given (Other Intervention Used): Ketorolac 10 mg PO once snw 13:05 Drug: Flexeril (cyclobenzaprine) 10 mg Route: PO; kr3 13:05 Drug: Motrin (ibuprofen) 600 mg Route: PO; kr3 Outcome: 12:57 Discharge ordered by MD. snw 13:59 Patient left the ED. 5 Signatures: Dispatcher [employer] EDMS Mya Billy FNP-C FNP-CsnSruthi Sanders am2 Sruthi Dwyer RN RN ap3 Estela Orona RN RN jh5 Josephine Alonso RN RN kr3 Corrections: (The following items were deleted from the chart) 11:32 11:30 Allergies: NKA; ap3 ap3
--- NOTE | 2022-08-19 12:58 | EDPHYS ---
Physician Documentation [facility] Name: Celena Keenan Age: 32 yrs Sex: Female : 1990 Arrival Date: 08/19/2022 Time: 11:06 Bed 11 Private MD: ED Physician Dl Mars HPI: 08/19 13:01 This 32 yrs old Black Female presents to ER via Ambulatory with complaints of Fall snw Injury, Shoulder Injury - left. 13:01 Details of fall: The patient fell from an upright position, while skating. Onset: The snw symptoms/episode began/occurred suddenly, 1 week(s) ago, and became persistent. Associated injuries: The patient sustained left shoulder, contusion, decreased range of motion, painful injury. Severity of symptoms: At their worst the symptoms were moderate. The patient has not experienced similar symptoms in the past. 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 - Social history:: Smoking status: Patient denies any tobacco usage or history of. Patient uses alcohol, occasionally. ROS: 13:00 Constitutional: Negative for fever, chills, and weight loss, Eyes: Negative for injury, snw pain, redness, and discharge, ENT: Negative for injury, pain, and discharge, Neck: Negative for injury, pain, and swelling, Cardiovascular: Negative for chest pain, palpitations, and edema, Respiratory: Negative for shortness of breath, cough, wheezing, and pleuritic chest pain, Abdomen/GI: Negative for abdominal pain, nausea, vomiting, diarrhea, and constipation, Back: Negative for injury and pain, : Negative for injury, bleeding, discharge, and swelling, MS/Extremity: Positive for injury to left shoulder, upper arm, no deformity, Skin: Negative for injury, rash, and discoloration, Neuro: Negative for headache, weakness, numbness, tingling, and seizure. Exam: 13:00 Constitutional: This is a well developed, well nourished patient who is awake, alert, snw and in no acute distress. Head/Face: Normocephalic, atraumatic. Eyes: Pupils equal round and reactive to light, extra-ocular motions intact. Lids and lashes normal. Conjunctiva and sclera are non-icteric and not injected. Cornea within normal limits. Periorbital areas with no swelling, redness, or edema. Neck: Trachea midline, no thyromegaly or masses palpated, and no cervical lymphadenopathy. Supple, full range of motion without nuchal rigidity, or vertebral point tenderness. No Meningismus. Chest/axilla: Normal chest wall appearance and motion. Nontender with no deformity. No lesions are appreciated. Cardiovascular: Regular rate and rhythm with a normal S1 and S2. No gallops, murmurs, or rubs. Normal PMI, no JVD. No pulse deficits. Respiratory: Lungs have equal breath sounds bilaterally, clear to auscultation and percussion. No rales, rhonchi or wheezes noted. No increased work of breathing, no retractions or nasal flaring. Abdomen/GI: Soft, non-tender, with normal bowel sounds. No distension or tympany. No guarding or rebound. No evidence of tenderness throughout. Back: No spinal tenderness. No costovertebral tenderness. Full range of motion. Skin: Warm, dry with normal turgor. Normal color with no rashes, no lesions, and no evidence of cellulitis. MS/ Extremity: Pulses equal, no cyanosis. Neurovascular intact. Full, normal range of motion. Neuro: Awake and alert, GCS 15, oriented to person, place, time, and situation. Cranial nerves II-XII grossly intact. Motor strength 5/5 in all extremities. Sensory grossly intact. Cerebellar exam normal. Normal gait. Psych: Awake, alert, with orientation to person, place and time. Behavior, mood, and affect are within normal limits. Vital Signs: 11:29 BP 110 / 74; Pulse 85; Resp 17; Temp 98.2; Pulse Ox 100% ; Weight 106.59 kg; Height 5 ap3 ft. 6 in. (167.64 cm); Pain 7/10; 11:29 Body Mass Index 37.93 (106.59 kg, 167.64 cm) ap3 MDM: 11:37 Patient medically screened. snw 12:58 Differential diagnosis: abrasion, contusion, fracture, sprain. Data reviewed: vital snw signs, nurses notes. Data interpreted: Pulse oximetry: on room air is 100 %. Interpretation: normal. Counseling: I had a detailed discussion with the patient and/or guardian regarding: the historical points, exam findings, and any diagnostic results supporting the discharge/admit diagnosis, radiology results, the need for outpatient follow up, to return to the emergency department if symptoms worsen or persist or if there are any questions or concerns that arise at home. Special discussion: Based on the history and exam findings, there is no indication for further emergent testing or inpatient evaluation. I discussed with the patient/guardian the need to see the primary care provider for further evaluation of the symptoms. 08/19 11:18 Order name: Shoulder Left (2 View) XRAY; Complete Time: 12:41 snw 08/19 12:53 Order name: Sling; Complete Time: 13:07 snw Administered Medications: 12:58 Not Given (Other Intervention Used): Ketorolac 10 mg PO once snw 13:05 Drug: Flexeril (cyclobenzaprine) 10 mg Route: PO; kr3 13:05 Drug: Motrin (ibuprofen) 600 mg Route: PO; kr3 Disposition: 16:13 Co-signature as Attending Physician, Dl Mars DO I was immediately available on-site ms3 in the Emergency Department for consultation in the care of the patient. Disposition Summary: 08/19/22 12:57 Discharge Ordered Location: Home snw Condition: Stable snw Diagnosis - Fall on same level from slipping, tripping and stumbling without subsequent snw striking against object - Contusion of left shoulder snw Followup: snw - With: Emergency Department - When: As needed - Reason: Worsening of condition Followup: snw - With: Private Physician - When: 2 - 3 days - Reason: Recheck today's complaints, Continuance of care, Re-evaluation by your physician Forms: - Medication Reconciliation Form snw - Thank You Letter snw - Antibiotic Education snw - Prescription Opioid Use snw Signatures: Dispatcher [employer] EDMya Giang FNP-C FOUNTAIN MANAGER-Csnw Sruthi Dwyer RN RN ap3 Dl Mars DO DO ms3 Josephine Alonso RN RN kr3 Corrections: (The following items were deleted from the chart) 11:32 11:30 Allergies: NKA; ap3 ap3
[2022-08-19] MEDS ORDERED: IBUPROFEN 200 MG TAB PO ONE (13:02)
[2022-08-19] MEDS ORDERED: IBUPROFEN 400 MG TAB ONE (13:02)
[2022-08-19 14:10] VITALS: BP 110/74; TEMP 98.2; O2SAT 100
== END 2022-08-19 13:59 | disposition home or self-care (01) ==
LOC: ER 11:05
DX: S40.012A Contusion of left shoulder, initial encounter (principal); W01.0XXA Fall on same level from slipping, tripping and stumbling without subsequent striking against object, initial encounter
CPT/HCPCS: 99283